=== PATIENT | female | born 1990 | race Caucasian/White ===

== ENCOUNTER 2022-05-08 13:15 | Emergency (ER) | payer OTHER, SELFPAY ==
[2022-05-08 13:24] VITALS: BP 136/79; PULSE 88; RESP 14; TEMP 37.7; O2SAT 98; BMI 31.0
--- NOTE | 2022-05-08 13:42 | DI.US.S_ITS ---
PROCEDURE: US PELVIC COMPLETE INDICATIONS: h/o Left ovarian cysts, Pain uncontrolled TECHNIQUE: Real-time scanning was performed of the pelvic organs, with image documentation. Additional endovaginal scanning was necessary due to incomplete visualization of the adnexal and endometrial structures by transabdominal scanning. COMPARISON: None. FINDINGS: Normal appearance in size of the uterus. No uterine mass. Normal thickness endometrium. Both ovaries are normal in size and appearance. No ovarian or adnexal mass. Approximately 1.4 cm dominant follicle noted in the left ovary. Both ovaries demonstrate normal venous and arterial Doppler blood flow signal. IMPRESSION: Normal study. Small clinically insignificant physiologic/follicular cyst in the left ovary. We strive to produce accurate, complete, and clear reports of imaging services. To assist us in improving patient care, this report was composed using standard report templates and voice recognition software. Therefore, it may contain abnormal punctuation, insertions and/or omissions. Occasional wrong-word or sound-alike substitutions may occur. Though we review the report and make efforts to correct it, we do recommend that the report be read carefully in proper context to recognize any text inaccuracies. Dictated by: Cristiano Peralta M.D. on 05/08/2022 at 13:38 Approved by: Cristiano Peralta M.D. on 05/08/2022 at 13:45
[2022-05-08] MEDS: KETOROLAC 30 MG/ML VIAL 15 MG IV (13:45)
[2022-05-08] MEDS: ONDANSETRON 4 MG/2 ML INJ IV (13:45)
[2022-05-08 14:16] LABS: Add Manual Diff / Slide Review NO; Basophils Absolute Auto 0 /uL (0-100); Basophils Percent Auto 0.4 % (0-2); Eosinophils Absolute Auto 100 /uL (0-450); Eosinophils Percent Auto 0.9 % (2-4); Hematocrit 41.8 % (36-46); Hemoglobin 14.1 g/dL (12.0-16.0); Lymphocytes Absolute Auto 1800 /uL (1100-4500); Lymphocytes Percent Auto 21.1 % (25-40); Mean Corpuscular HGB Conc 33.7 % (30-36); Mean Corpuscular Hemoglobin 30.8 PG (26-34); Mean Corpuscular Volume 91.2 fL (80-100); Monocytes Absolute Auto 500 /uL (0-900); Monocytes Percent Auto 5.2 % (3-14); Neutrophils Absolute Auto 6300 /uL (1500-7000); Neutrophils Percent Auto 72.4 % (50-75); Platelet Count 362 X10^3/uL (150-400); Red Blood Cell Count 4.59 X10^6/uL (4.0-5.2); Red Cell Distribution Width 12.9 % (11.6-14.8); White Blood Cell Count 8.7 X10^3/uL (4.5-11.0)
[2022-05-08 14:18] LABS: Alanine Aminotransferase 23 IU/L (<35); Albumin 4.5 g/dL (3.5-5.0); Albumin Globulin Ratio 1.3 (1.0-2.8); Alkaline Phosphatase 105 U/L (38-126); Aspartate Aminotransferase 20 IU/L (14-36); BUN Creatinine Ratio 20.6 (6-22); Bilirubin Total 0.5 mg/dL (0.2-1.3); Blood Urea Nitrogen 14 mg/dL (7-17); Carbon Dioxide 25 mmol/L (22-32); Chloride 105 mmol/L (98-107); Estimated Glomerular Filt Rate > 60 mL/min (>60); Globulin 3.4 g/dL (1.7-4.1); Glucose 90 mg/dL (70-100); HEMOLYSIS < 15 (0-50); Lipase 56 U/L (23-300); Potassium 3.8 mmol/L (3.4-5.1); Sodium 138 mmol/L (137-145); Total Protein 7.9 g/dL (6.3-8.2)
[2022-05-08 14:48] LABS: Influenza A - CEPHEID Flu A NEGATIVE (NEGATIVE); Influenza B - CEPHEID Flu B NEGATIVE (NEGATIVE); Respiratory Syncytial Virus Negative (Negative)
[2022-05-08 14:50] LABS: COVID-19 CEPHEID 4-PLEX PCR Negative (Negative)
--- NOTE | 2022-05-08 15:00 | ED.ABDPAIN ---
HPI - Abdominal Pain <KAMLA Landry - Last Filed: 05/08/22 19:18> General Chief Complaint: Abdominal Pain Stated Complaint: has a cyst pain is getting worse/N/ sweating t-35 Time Seen by Provider: 05/08/22 13:57 Source: patient Mode of arrival: Ambulatory History of Present Illness HPI narrative: This is a 32-year-old female presents to the emergency department with right pelvic pain which she thinks is related to an ovarian cyst and she states she has a history these. She states that she is not on contraception, her last menstrual cycle was about 2 weeks ago, states that her menses are very painful and heavy. States that it has gotten worse over the last year or two. She denies , denies abnormal vaginal discharge, denies stool changes, vomiting, fever or chills, denies upper respiratory symptoms or other abdominal pain, states that her pelvic region is uncomfortable and primarily on the right. She is had sweating and denies dysuria, urinary frequency or urgency. Related Data Previous Rx's Medication Instructions Recorded hydrocodone 5 mg-acetaminophen 325 1 tab PO Q6H PRN pain #14 tabs 05/08/22 mg tablet ketorolac 10 mg tablet 10 mg PO TID PRN pain 5 days #20 05/08/22 tabs ondansetron 4 mg disintegrating 4 mg PO Q8H #10 tabs 05/08/22 tablet Allergies Allergy/AdvReac Type Severity Reaction Status Date / Time sertraline [From Zoloft] Allergy Intermediate Rash Verified 05/08/22 13:30 Review of Systems <KAMLA Landry - Last Filed: 05/08/22 19:18> Review of Systems ROS Unobtainable: All systems reviewed & are unremarkable except as noted in HPI and below Patient History <KAMLA Landry - Last Filed: 05/08/22 19:18> Social History Smoking Status: Former smoker Smoking Status: Former smoker alcohol intake frequency: other Substance Use Type: does not use Exam <KAMLA Landry - Last Filed: 05/08/22 19:18> Narrative Exam Narrative: Reviewed vitals signs and nursing notes. General: cooperative, comfortable, in no acute distress, well groomed HEENT: symmetrical facial expressions, moist mucous membranes Cardiovascular: regular rate and rhythm, no peripheral edema, warm extremities Respiratory: normal effort, able to speak in complete sentences, without wheezing, stridor, or abnormal breath sounds. No retractions or tachypnea. GI: abdomen soft, no significant tenderness, right pelvis is tender over her right ovary, nontender on the left, no CVA tenderness bilaterally, without other abdominal tenderness to palpation, no masses or distention. Patient endorses rectal pain when she finishes defecating. MSK: moves all extremities, neurovascularly intact, no weakness, normal tone Skin: brisk capillary refill, without pallor or erythema Neuro: normal speech and cognition, A&O x3, ambulatory, clear speech Psych: mental status is grossly normal, congruent mood, normal affect, pleasant and cooperative Initial Vital Signs Initial Vital Signs: Vital Signs Temperature 99.9 F H 05/08/22 13:24 Pulse Rate 88 05/08/22 13:24 Respiratory Rate 14 05/08/22 13:24 Blood Pressure 136/79 05/08/22 13:24 Pulse Oximetry 98 05/08/22 13:24 Oxygen Delivery Method 05/08/22 13:24 <Jelani Alford DO - Last Filed: 05/09/22 03:22> Initial Vital Signs Initial Vital Signs: Vital Signs Temperature 99.9 F H 05/08/22 13:24 Pulse Rate 88 05/08/22 13:24 Respiratory Rate 14 05/08/22 13:24 Blood Pressure 136/79 05/08/22 13:24 Pulse Oximetry 98 05/08/22 13:24 Oxygen Delivery Method 05/08/22 13:24 Course <KAMLA Landry - Last Filed: 05/08/22 19:18> Orders Ordered: Discontinued Medications Hydromorphone HCl (Hydromorphone 0.5 Mg Inj) 0.5 mg IV NOW ONE Stop: 05/08/22 15:11 Last Admin: 05/08/22 16:33 Dose: 0.5 mg Documented By: ANA Ketorolac Tromethamine (Ketorolac 30 Mg/Ml Vial) 15 mg IV NOW ONE Stop: 05/08/22 13:43 Last Admin: 05/08/22 13:45 Dose: 15 mg Documented By: RAJ Ondansetron HCl (Ondansetron 4 Mg/2 Ml Inj) 4 mg IV NOW PRN PRN Reason: Nausea And Vomiting Last Admin: 05/08/22 13:45 Dose: 4 mg Documented By: RAJ Vital Signs Vital signs: Vital Signs - 8 hr 05/08/22 13:24 05/08/22 16:38 05/08/22 16:38 Temperature 99.9 F H Pulse Rate 88 77 Respiratory Rate 14 Blood Pressure 136/79 119/66 Pulse Oximetry 98 95 Oxygen Delivery Method Room Air 05/08/22 17:00 05/08/22 17:00 05/08/22 17:30 Temperature Pulse Rate 71 Respiratory Rate Blood Pressure 117/70 112/65 Pulse Oximetry 97 Oxygen Delivery Method 05/08/22 17:30 Temperature Pulse Rate 71 Respiratory Rate Blood Pressure Pulse Oximetry 93 Oxygen Delivery Method <Jelani Alford DO - Last Filed: 05/09/22 03:22> Orders Ordered: Discontinued Medications Hydromorphone HCl (Hydromorphone 0.5 Mg Inj) 0.5 mg IV NOW ONE Stop: 05/08/22 15:11 Last Admin: 05/08/22 16:33 Dose: 0.5 mg Documented By: ANA Ketorolac Tromethamine (Ketorolac 30 Mg/Ml Vial) 15 mg IV NOW ONE Stop: 05/08/22 13:43 Last Admin: 05/08/22 13:45 Dose: 15 mg Documented By: RAJ Ondansetron HCl (Ondansetron 4 Mg/2 Ml Inj) 4 mg IV NOW PRN PRN Reason: Nausea And Vomiting Last Admin: 05/08/22 13:45 Dose: 4 mg Documented By: RAJ Vital Signs Vital signs: Vital Signs - 8 hr 05/08/22 13:24 05/08/22 16:38 05/08/22 16:38 Temperature 99.9 F H Pulse Rate 88 77 Respiratory Rate 14 Blood Pressure 136/79 119/66 Pulse Oximetry 98 95 Oxygen Delivery Method Room Air 05/08/22 17:00 05/08/22 17:00 05/08/22 17:30 Temperature Pulse Rate 71 Respiratory Rate Blood Pressure 117/70 112/65 Pulse Oximetry 97 Oxygen Delivery Method 05/08/22 17:30 Temperature Pulse Rate 71 Respiratory Rate Blood Pressure Pulse Oximetry 93 Oxygen Delivery Method [facility] - Abdominal Pain <Jenny Pedrozakatlyn, [facility] - Last Filed: 05/08/22 19:18> Lab Data Result diagrams: 05/08/22 13:56 05/08/22 13:56 Labs: Lab Results 05/08/22 05/08/22 05/08/22 Range/Units 13:35 13:56 13:56 WBC 8.7 (4.5-11.0) X10^3/uL RBC 4.59 (4.0-5.2) X10^6/uL Hgb 14.1 (12.0-16.0) g/dL Hct 41.8 (36-46) % MCV 91.2 (80-100) fL MCH 30.8 (26-34) PG MCHC 33.7 (30-36) % RDW 12.9 (11.6-14.8) % Plt Count 362 (150-400) X10^3/uL Neut % (Auto) 72.4 (50-75) % Lymph % (Auto) 21.1 L (25-40) % [place] % (Auto) 5.2 (3-14) % Eos % (Auto) 0.9 L (2-4) % Baso % (Auto) 0.4 (0-2) % Neut # (Auto) 6300 (0860-1801) /uL Lymph # (Auto) 1800 (0261-9062) /uL [place] # (Auto) 500 (0-900) /uL Eos # (Auto) 100 (0-450) /uL Baso # (Auto) 0 (0-100) /uL Sodium 138 (137-145) mmol/L Potassium 3.8 (3.4-5.1) mmol/L Chloride 105 (98-107) mmol/L Carbon Dioxide 25 (22-32) mmol/L BUN 14 (7-17) mg/dL Creatinine 0.68 (0.52-1.04) mg/dL Estimated GFR > 60 (>60) mL/min BUN/Creatinine Ratio 20.6 (6-22) Glucose 90 (70-100) mg/dL Calcium 9.0 (8.4-10.2) mg/dL Total Bilirubin 0.5 (0.2-1.3) mg/dL AST 20 (14-36) IU/L ALT 23 (<35) IU/L Alkaline Phosphatase 105 (38-126) U/L Total Protein 7.9 (6.3-8.2) g/dL Albumin 4.5 (3.5-5.0) g/dL Globulin 3.4 (1.7-4.1) g/dL Albumin/Globulin Ratio 1.3 (1.0-2.8) Lipase 56 (23-300) U/L SARS-CoV-2 (PCR) Negative (Negative) Influenza A (RT-PCR) Flu a negative (NEGATIVE) Influenza B (RT-PCR) Flu b negative (NEGATIVE) RSV (PCR) Negative (Negative) Point of care testing: Point of Care Testing Test Results Negative Urine Dip Bedside Urine Glucose Negative Bedside Urine Bilirubin - Negative Bedside Urine Ketone - Negative Urine Specific [place] 1.010 Bedside Urine Occult Blood - Negative Bedside Urine pH 6 Bedside Urine Protein - Negative Bedside Urine Urobilinogen - Negative Bedside Urine Nitrite - Negative Bedside Urine Leukocytes - Negative Esterase Imaging Data US - MUSICAL THERAPIST: Radiologist's Impression: PROCEDURE:? US PELVIC COMPLETE ? INDICATIONS:? h/o Left ovarian cysts, Pain uncontrolled ? TECHNIQUE:? Real-time scanning was performed of the pelvic organs, with image documentation.? Additional endovaginal scanning was necessary due to incomplete visualization of the adnexal and endometrial structures by transabdominal scanning.? ? COMPARISON:? None. ? FINDINGS:? ?? Normal appearance in size of the uterus.? No uterine mass.? Normal thickness endometrium. ? Both ovaries are normal in size and appearance.? No ovarian or adnexal mass.? Approximately 1.4 cm dominant follicle noted in the left ovary.? Both ovaries demonstrate normal venous and arterial Doppler blood flow signal. ? ? IMPRESSION:? Normal study.? Small clinically insignificant physiologic/follicular cyst in the left ovary. ? ? ? We strive to produce accurate, complete, and clear reports of imaging services. To assist us in improving patient care, this report was composed using standard report templates and voice recognition software. Therefore, it may contain abnormal punctuation, insertions and/or omissions. Occasional wrong-word or sound-alike substitutions may occur. Though we review the report and make efforts to correct it, we do recommend that the report be read carefully in proper context to recognize any text inaccuracies. ? ? Dictated by: Cristiano Peralta M.D. on 05/08/2022 at 13:38 ? ? Approved by: Cristiano Peralta M.D. on 05/08/2022 at 13:45 ? CT scan - abdomen/pelvis: Radiologist's Impression: PROCEDURE:? CT ABDOMEN PELVIS W CON ? INDICATIONS:? rectal/rt pelvic pain since 04/03, ovarian cyst ? TECHNIQUE:? After the administration of intravenous contrast, axial sections acquired from the lung bases to the pubic symphysis.? Coronal and sagittal reformats were performed.? For radiation dose reduction, the following was used:? automated exposure control, adjustment of mA and/or kV according to patient size.? ? COMPARISON:? None. ? FINDINGS:? ? Liver:? Unremarkable.? ? Gallbladder:? Cholecystectomy.? ? Biliary ducts:? Unremarkable.? ? Pancreas:? Unremarkable.? ? Spleen:? Unremarkable.? ? Adrenal Glands:? Unremarkable.? ? Kidneys and Ureters:? Unremarkable.? ? ? Stomach and Bowel:? Stomach, small bowel loops, and colon are unremarkable.? Peritoneum:? No abnormal intraperitoneal fluid.? No free air.? ? Ventral Wall: ? No hernias.? Abdominal Nodes:? No retroperitoneal or mesenteric adenopathy by size criteria.? Vessels:? Aorta and inferior vena cava are normal in size.? ? PELVIS: Pelvic Organs:? Bilateral ovarian cysts.? Probable 2.5 cm intramural uterine fibroid in the left posterior uterus. Bladder:? Decompressed and not well evaluated but grossly normal. Pelvic Nodes: No enlarged lymph nodes.? Miscellaneous: No hernias are seen. ? ? ? Bones:? Unremarkable.? IMPRESSION:? No acute finding. ? ? Dictated by: Cristiano Peralta M.D. on 05/08/2022 at 15:22 ? ? Approved by: Cristiano Peralta M.D. on 05/08/2022 at 15:25 ? MDM Narrative Medical decision making narrative: This is a 32 year female presents to the emergency department with history of dysmenorrhea, menorrhagia, ovarian cyst complaining of right-sided pelvic pain with last menstrual period 2 weeks ago. On her evaluation today, her wet prep is negative for infectious findings, occasional WBCs present, no rash or other abnormalities present on exam, tenderness over the right ovary with palpation but not exquisite tenderness. Pelvis ultrasound reports a small clinically insignificant follicular cyst in the left ovary no ovarian or adnexal masses or thickened endometrium. Patient's lab work came back reassuring, unremarkable, and without concern for systemic infection. Patient's urine is negative for infection, , and her respiratory panel was negative for COVID influenza a and B and RSV. Patient has had nausea but without vomiting. CT abdomen pelvis is obtained for nonspecific abdominal pain and her abdomen pelvis CT shows a probable 2.5 cm intramural uterine fibroid in the left posterior uterus, no enlarged lymph nodes in the pelvis, decompressed bladder grossly normal and no acute findings. Patient has remote history of cholecystectomy. This is most likely related to ovarian cyst and uterine fibroid, patient's pain was treated with above-documented medications and her symptoms improved throughout her course in the emergency department. Patient was given a prescription of Zofran, ketorolac p.o. and hydrocodone to help treat her pain since she states she has been using ibuprofen and is not been adequate. She is nontoxic appearing. Differential diagnosis considered include: Malignancy, primary dysmenorrhea, viral illness, uterine fibroids, endometrial polyp/endometriosis, PID, cystitis, cervicitis, ectopic . Patient is appropriate and amenable to discharge home. Vital signs are stable on repeat examination is unremarkable. Patient has been informed of results. Patient has been given strict return to ER precautions for any new or worsening symptoms. Patient understands to follow up closely with outpatient providers as instructed. Patient understands plan and agrees to discharge home. All questions and concerns answered at this time. Patient was given follow-up contact information for OBGYN and encouraged to make an appointment and follow up accordingly. <Jelani Alford, DO - Last Filed: 05/09/22 03:22> Lab Data Labs: Lab Results 05/08/22 05/08/22 05/08/22 Range/Units 13:35 13:56 13:56 WBC 8.7 (4.5-11.0) X10^3/uL RBC 4.59 (4.0-5.2) X10^6/uL Hgb 14.1 (12.0-16.0) g/dL Hct 41.8 (36-46) % MCV 91.2 (80-100) fL MCH 30.8 (26-34) PG MCHC 33.7 (30-36) % RDW 12.9 (11.6-14.8) % Plt Count 362 (150-400) X10^3/uL Neut % (Auto) 72.4 (50-75) % Lymph % (Auto) 21.1 L (25-40) % [place] % (Auto) 5.2 (3-14) % Eos % (Auto) 0.9 L (2-4) % Baso % (Auto) 0.4 (0-2) % Neut # (Auto) 6300 (2151-9496) /uL Lymph # (Auto) 1800 (4836-4945) /uL [place] # (Auto) 500 (0-900) /uL Eos # (Auto) 100 (0-450) /uL Baso # (Auto) 0 (0-100) /uL Sodium 138 (137-145) mmol/L Potassium 3.8 (3.4-5.1) mmol/L Chloride 105 (98-107) mmol/L Carbon Dioxide 25 (22-32) mmol/L BUN 14 (7-17) mg/dL Creatinine 0.68 (0.52-1.04) mg/dL Estimated GFR > 60 (>60) mL/min BUN/Creatinine Ratio 20.6 (6-22) Glucose 90 (70-100) mg/dL Calcium 9.0 (8.4-10.2) mg/dL Total Bilirubin 0.5 (0.2-1.3) mg/dL AST 20 (14-36) IU/L ALT 23 (<35) IU/L Alkaline Phosphatase 105 (38-126) U/L Total Protein 7.9 (6.3-8.2) g/dL Albumin 4.5 (3.5-5.0) g/dL Globulin 3.4 (1.7-4.1) g/dL Albumin/Globulin Ratio 1.3 (1.0-2.8) Lipase 56 (23-300) U/L SARS-CoV-2 (PCR) Negative (Negative) Influenza A (RT-PCR) Flu a negative (NEGATIVE) Influenza B (RT-PCR) Flu b negative (NEGATIVE) RSV (PCR) Negative (Negative) Point of care testing: Point of Care Testing Test Results Negative Urine Dip Bedside Urine Glucose Negative Bedside Urine Bilirubin - Negative Bedside Urine Ketone - Negative Urine Specific [place] 1.010 Bedside Urine Occult Blood - Negative Bedside Urine pH 6 Bedside Urine Protein - Negative Bedside Urine Urobilinogen - Negative Bedside Urine Nitrite - Negative Bedside Urine Leukocytes - Negative Esterase Discharge Plan Departure Patient Disposition: Home Clinical Impression: Uterine fibroid Qualifiers: Uterine leiomyoma location: intramural Qualified Code(s): D25.1 - Intramural leiomyoma of uterus Ovarian cyst Qualifiers: Laterality: bilateral Qualified Code(s): N83.201 - Unspecified ovarian cyst, right side Instructions: Ovarian Cyst, Uterine Fibroids Activity Restrictions/Additional Instructions: *You have been diagnosed with a 2.5 cm intramural uterine fibroid which as the nurses stay here are very painful. I am sorry for how this feels, please use Toradol instead of ibuprofen every 6-8 hours with food and water as needed for your pain, you can take this with a pain pill, and schedule an appointment with Dr. Ballard or other OBGYN with our group for follow-up. They will let you know if this will require procedure to help treat your painful and heavy periods. Please use nausea medication and pain medication as needed to help treat your symptoms, stay hydrated, consider using a stool softener as firm stool moving over ovarian cysts is very painful as well. Your vaginal secretion test came back with an occasional white blood cell, this is common with inflammation and since you have to reasons for inflammation in your pelvis, this is likely not infectious. If you develop worsening vaginal discharge or changes to it that are concerning, please follow-up with a repeat exam. Please schedule an appointment with Dr. Ballard for OBGYN follow-up, I will send in this note and you can choose any of the OBGYN doctors associated with this practice. Try to avoid any during activity like running or jumping and I hope you feel better soon CONTROLLED SUBSTANCE DISCHARGE (Narcotic/benzodiazepine/Flexeril/Phenergan) 1. You have been prescribed narcotic medications, it does have acetaminophen/Tylenol/paracetamol in it, DO NOT TAKE MORE THAN 4,00mg in 24 hours of Tylenol. *Tramadol does not contain tylenol. 2. Please understand that we cannot provide further refills of narcotics, benzodiazepines or controlled substances through the ED and her pain management will need to be through your provider. 3. While on these medications you cannot drive or operate heavy machinery. 4. You cannot sign legal documents or perform any duties such as this. 5. As long as you are taking opiate pain medications he should also be taking a stool softener such as Colace, Dulcolax, MiraLAX or prune juice, to help avoid constipation. *What to do: *Please continue to take your regular medications as directed. [x ] New medication prescriptions sent to your pharmacy: [ [facility]] [ ] New medication written as a paper prescription [ ] No new medications given *Please follow up with your primary care provider in 2-3 days, call for an appointment. Let them know you were seen in the Emergency Department and that we asked that you be seen for follow-up. We will electronically transmit a record of today's note if your PCP is in our system *If you do not have a primary care provider please contact [phone] to establish care with one of the [facility] primary care providers. *Return to Emergency Department if you should have any new, worsening, or concerning symptoms, such as [fever greater than 101F, chills, worsening pain, persistent vomiting or other bothersome symptoms]. Prescriptions: New ondansetron 4 mg tablet,disintegrating 4 mg PO Q8H Qty: 10 0RF ketorolac 10 mg tablet 10 mg PO TID PRN (Reason: pain) 5 Days Qty: 20 0RF hydrocodone-acetaminophen 5-325 mg tablet 1 tab PO Q6H PRN (Reason: pain) Qty: 14 0RF Referrals: Shandra Cleaning PA-C [Primary Care Provider] - Brijesh Ballard MD [Physician] - Visit Report Forms: Patient Portal/API <Jelani Alford DO - Last Filed: 05/09/22 03:22> [facility]: I was immediately available in the department for consultation. This documentation has been reviewed and I agree with assessment and plan. Supervised by Jelani Alford DO
--- NOTE | 2022-05-08 15:09 | DI.CT.S_ITS ---
PROCEDURE: CT ABDOMEN PELVIS W CON INDICATIONS: rectal/rt pelvic pain since 04/03, ovarian cyst TECHNIQUE: After the administration of intravenous contrast, axial sections acquired from the lung bases to the pubic symphysis. Coronal and sagittal reformats were performed. For radiation dose reduction, the following was used: automated exposure control, adjustment of mA and/or kV according to patient size. COMPARISON: None. FINDINGS: Liver: Unremarkable. Gallbladder: Cholecystectomy. Biliary ducts: Unremarkable. Pancreas: Unremarkable. Spleen: Unremarkable. Adrenal Glands: Unremarkable. Kidneys and Ureters: Unremarkable. Stomach and Bowel: Stomach, small bowel loops, and colon are unremarkable. Peritoneum: No abnormal intraperitoneal fluid. No free air. Ventral Wall: No hernias. Abdominal Nodes: No retroperitoneal or mesenteric adenopathy by size criteria. Vessels: Aorta and inferior vena cava are normal in size. PELVIS: Pelvic Organs: Bilateral ovarian cysts. Probable 2.5 cm intramural uterine fibroid in the left posterior uterus. Bladder: Decompressed and not well evaluated but grossly normal. Pelvic Nodes: No enlarged lymph nodes. Miscellaneous: No hernias are seen. Bones: Unremarkable. IMPRESSION: No acute finding. Dictated by: Cristiano Peralta M.D. on 05/08/2022 at 15:22 Approved by: Cristiano Peralta M.D. on 05/08/2022 at 15:25
[2022-05-08] MEDS: HYDROMORPHONE 0.5 MG INJ IV (16:33)
[2022-05-08 16:38] VITALS: BP 119/66; PULSE 77; O2SAT 95
[2022-05-08 17:00] VITALS: BP 117/70; PULSE 71; O2SAT 97
[2022-05-08 17:30] VITALS: BP 112/65; PULSE 71; O2SAT 93
== END 2022-05-08 17:48 | disposition home or self-care (01) ==
PROVIDERS: Emergency Medicine; Emergency Provider Nurse Practitioner Critical Care Medicine; PCP Physician Assistant
DX: D25.1 Intramural leiomyoma of uterus (principal); N83.202 Unspecified ovarian cyst, left side; N83.201 Unspecified ovarian cyst, right side
CPT/HCPCS: 0241U; 74177; 76830; 76856; 80053; 81003; 81025; 83690; 85025; 87210; 93976; 96374; 96375; 99284; J1170; J1885; J2405; Q9967

== ENCOUNTER 2022-10-16 08:03 | Emergency (ER) | payer OTHER, SELFPAY ==
[2022-10-16 08:27] VITALS: BP 143/94; PULSE 80; RESP 18; TEMP 36.6; O2SAT 100; BMI 31.0
--- NOTE | 2022-10-16 09:00 | ED.ANXIETY ---
HPI - Anxiety General Chief Complaint: Anxiety Stated Complaint: has PTSD/HX PBC/not sleeping/depression/aniexty Time Seen by Provider: 10/16/22 08:45 Source: patient Mode of arrival: Ambulatory Limitations: no limitations History of Present Illness HPI narrative: This is a 32-year-old female with complaint of PTSD, primary biliary cirrhosis, depression and anxiety who presents with increased thoughts of anxiety and racing thoughts. Patient states no thoughts of harming herself or others. She states she does get angry very easily but the majority of her thoughts which often keeps her from sleeping or make her very distracted are more related to having to move, packing and keeping track while the things that need to be occurring recently. She states there is a lot of changes occurring they are trying to sell their house, there is listed move in several weeks. Patient states that she has history of trauma 2017 as well as when she was much younger and she is recently had some increased thoughts for this. She endorses that she does not have any thoughts of harming herself or others she does not feel that she needs hospitalization she has set up an appointment with her primary care physician in the next week but need some help getting to that appointment. She states she takes Xanax as needed she is been taking it twice daily and has not been very helpful she is taking 0.5 mg. She has been on duloxetine 60 mg since July or June she states that was life changing and extremely helpful medication. She is not had any dosage changes recently. She ran out of her ursodiol which he states is for her primary biliary cirrhosis but did not know if this might be affecting how her medications are being processed. Her provider who wrote this left the area and she has not able to get a refill. Patient denies fevers chills, no chest pain or shortness of breath, she is had some mild nausea but no vomiting, no diarrhea, no constipation, no other GI or urinary symptoms. Patient states she is just feeling quite anxious and having lot of trouble focusing. She notes sometimes she gets a little bit of ofelia where she can be very focused and at this point does not feel that way. She is accompanied by her . She is an allergy to sertraline. She vapes nicotine, denies any active alcohol use, no THC or other illicit. She does have a primary care provider currently. Related Data Previous Rx's Medication Instructions Recorded hydrocodone 5 mg-acetaminophen 325 1 tab PO Q6H PRN pain #14 tabs 05/08/22 mg tablet ondansetron 4 mg disintegrating 4 mg PO Q8H #10 tabs 05/08/22 tablet alprazolam 0.5 mg tablet (Xanax) 1 mg PO BEDTIME PRN anxiety #14 10/16/22 tabs duloxetine 30 mg capsule,delayed 30 mg PO DAILY #14 caps 10/16/22 release ursodiol 250 mg tablet 750 mg PO BID 30 days #180 tabs 10/16/22 Allergies Allergy/AdvReac Type Severity Reaction Status Date / Time sertraline [From Zoloft] Allergy Intermediate Rash Verified 05/08/22 13:30 Review of Systems Review of Systems ROS Unobtainable: All systems reviewed & are unremarkable except as noted in HPI and below Patient History Social History Smoking Status: Former smoker Smoking Status: Former smoker alcohol intake frequency: other Substance Use Type: does not use Exam Narrative Exam Narrative: GENERAL: Alert and oriented x three, female in mild distress HEENT: Head normocephalic, atraumatic, EOMI, pupils reactive, face symmetric, moist mucous membranes NECK: Supple, full range of motion CARDIOVASCULAR: Regular rate and rhythm without murmurs, rubs or gallops. RESPIRATORY: Breath sounds equal bilaterally, no wheezes rales or rhonchi. ABDOMEN: Soft, nontender. Normoactive bowel sounds all 4 quadrants. No guarding or rebound, rigidity, no mass : No CVA tenderness EXTREMITIES: Normal range of motion, no clubbing or edema. Neurovascularly intact NEUROLOGICAL: Cranial nerves II through XII grossly intact. Moving all extremities SKIN: Warm, dry, no petechiae, no rashes or lesions. PSYCH: Positive for anxiety, depressive thoughts, racing thoughts, no thoughts of harming herself or others. No hallucinations. Initial Vital Signs Initial Vital Signs: Vital Signs Temperature 98 F 10/16/22 08:27 Pulse Rate 80 10/16/22 08:27 Respiratory Rate 18 10/16/22 08:27 Blood Pressure 143/94 H 10/16/22 08:27 Pulse Oximetry 100 10/16/22 08:27 Oxygen Delivery Method Room Air 10/16/22 08:27 Course Orders Ordered: ED Orders 10/16/22 09:09 Test Urine Stat Vital Signs Vital signs: Vital Signs - 8 hr 10/16/22 08:27 Temperature 98 F Pulse Rate 80 Respiratory Rate 18 Blood Pressure 143/94 H Pulse Oximetry 100 Oxygen Delivery Method Room Air MDM - Anxiety Lab Data Labs: Point of Care Testing Test Results Negative Urine Dip Bedside Urine Glucose Negative Bedside Urine Bilirubin - Negative Bedside Urine Ketone - Negative Urine Specific [place] 1.010 Bedside Urine Occult Blood - Negative Bedside Urine pH 6.0 Bedside Urine Protein - Negative Bedside Urine Urobilinogen - Negative Bedside Urine Nitrite - Negative Bedside Urine Leukocytes - Negative Esterase MDM Narrative Medical decision making narrative: This is a 32-year-old female who presents with complaint of increasing anxiety racing thoughts in difficulty with sleeping. Patient states she has baseline PTSD, anxiety and depression. She states no increase in thoughts of depression, she does not feel like she is going to harm herself or have any thoughts of harming herself or others. She does state she gets angry easier than normal. She states she had started on duloxetine and June or July which was significantly helpful at that time. She does have some triggers and life stressors currently that are likely exacerbating her symptoms. Urine is negative. Patient is felt safe for discharge home and she is not seeking inpatient placement currently. Social work not available today but patient has set up a follow-up appointment with her primary care. She notes she is been taking Xanax as needed sometimes twice daily with minimal improvement she is still on her duloxetine. She also notes her ursodiol ran out. Discussed restarting her ursodiol, trying to increase her duloxetine to 90 mg daily and see if this is helpful and a short course of Xanax slightly higher dose particularly for sleep. Patient and family at bedside both feel comfortable with this plan. Discharge Plan Departure Patient Disposition: Home Clinical Impression: Chronic anxiety Instructions: Anxiety and Panic Attacks (Alternative Therapy) Activity Restrictions/Additional Instructions: Follow-up with your physician for recheck at your appointment on Thursday. We can increase your duloxetine to see if this improves your symptoms in the short term. You can take 2 tablets of Xanax prior to sleep. Refill was also sent for your ursodiol. Prescription sent to [facility] in [place]. If you're feeling suicidal or having suicidal thoughts, contact the suicide hotline (this number is also self referral for counseling, resources and other options): . Please return if you are having thoughts of harming yourself or others, if you feel unsafe or have any other new or concerning changes. Prescriptions: New ursodiol 250 mg tablet 750 mg PO BID 30 Days Qty: 180 0RF duloxetine 30 mg capsule,delayed release(DR/EC) 30 mg PO DAILY Qty: 14 0RF Rx Instructions: Take 90mg total (your 60mg tablet + 30mg tablet) once daily. alprazolam [Xanax] 0.5 mg tablet 1 mg PO BEDTIME PRN (Reason: anxiety) Qty: 14 0RF No Action ondansetron 4 mg tablet,disintegrating 4 mg PO Q8H Qty: 10 0RF hydrocodone-acetaminophen 5-325 mg tablet 1 tab PO Q6H PRN (Reason: pain) Qty: 14 0RF Referrals: Shandra Cleaning PA-C [Primary Care Provider] - Stand Alone Forms: Patient Portal/API
[2022-10-16 09:29] VITALS: BP 132/70; PULSE 68; RESP 20; TEMP 36.8; O2SAT 97
== END 2022-10-16 09:33 | disposition home or self-care (01) ==
PROVIDERS: Emergency Provider Emergency Medicine; PCP Physician Assistant
DX: F41.9 Anxiety disorder, unspecified (principal)
CPT/HCPCS: 81003; 81025; 99282